=== PATIENT | male | born 1950 | race Caucasian/White ===

== ENCOUNTER 2022-03-26 06:57 | Inpatient (IN) ==
[2022-03-26] MEDS ORDERED: NITROGLYCERIN/D5W 100MCG/ML 20ML SYR ONE (08:05)
[2022-03-26] MEDS ORDERED: fentaNYL citrate 100 MCG/2 ML VIAL ONE ×2 (08:05→09:26)
[2022-03-26] MEDS ORDERED: MIDAZOLAM HCL 1 MG/ML 2ML VIAL ONE ×3 (08:05→09:58)
[2022-03-26] MEDS ORDERED: niCARdipine HCL INJ 2.5 MG/ML 10 ML AMP ONE (08:05)
[2022-03-26] MEDS ORDERED: HEPARIN (PORCINE) 1000 UNIT/ML 10 ML (CATH LAB USE ONLY) ONE ×2 (08:05→10:00)
[2022-03-26] MEDS ORDERED: LIDOCAINE 1% LOCAL 20 ML VIAL ONE (08:20)
--- NOTE | 2022-03-26 08:42 | Pre Anesthesia Assessment ---
Date of Service March 26, 2022 Pre Sedation Assessment Vital Signs Temp Pulse Resp BP Pulse Ox O2 Del Method 03/26/22 07:26 98.2 F 57 L 16 116/70 97 Room Air Cardiovascular RRR, no murmur, no edema Respiratory normal respiratory effort, lungs clear to auscultation Pre-Sedation Airway Assessment Smoking Status: Never smoker Hx Sleep Apnea: Yes Hx Difficult Intubation: No Short, Thick Neck: No Thyromental Distance: > or= 3.5 Finger Breadths Oral Cavity: + WNL Mallampati Class: IV ASA: ASA3 NPO Status Date of Last Intake of Fluids: 03/26/22 Time of Last Intake of Fluids: 04:30 Last Oral Intake of Fluids Comment: sip with meds Date of Last Intake of Solid Food: 03/25/22 Time of Last Intake of Solid Foods: 18:00 Procedure Planning Contraindications for Sedation: none Current Medications Reviewed: Yes Notes The planned sedation has been discussed with the patient. Informed Consent was obtained. I have identified the patient, determined the appropriateness of sedation and have assessed the patient immediately prior to the procedure. All medicine(s) and interventions are by my order.
--- NOTE | 2022-03-26 08:42 | History & Physical Bridge Note ---
Date of Service March 26, 2022 History & Physical Bridge Note I have examined the patient, reviewed the History & Physical and in the interval since the performance of the History & Physical I have noted the following changes of clinical significance: no changes noted
[2022-03-26] MEDS ORDERED: ATROPINE SULFATE 0.1 MG/ML 10ML SYR IV ONE (09:31)
[2022-03-26] MEDS ORDERED: NOREPINEPHRINE BITARTRATE 1 MG/ML 4 ML VIAL IV ONE (09:40)
--- NOTE | 2022-03-26 10:44 | Post Anesthesia Assessment ---
Date of Service March 26, 2022 Post Sedation Assessment Vital Signs Temp Pulse Resp BP Pulse Ox O2 Del Method 03/26/22 10:20 58 L 18 117/66 98 Room Air 03/26/22 07:26 98.2 F 57 L 16 116/70 97 Room Air Recovery Score Activity: Moves 4 extremities Respiration: Deep Breath/Cough Circulation: +/-20% PreAnes Value Consciousness: Fully Awake Oxygen Saturation: > 92% On Room Air Post Anesthesia Score: 10 Discharge Sedation Level of Care: Fast Track Phase II Post Sedation Plan On clinical assessment, the patient appears to have tolerated the sedation without complications. Patient is recovering as anticipated. Patient will continue to be monitored by nursing and may be discharged when sedation discharge criteria are met per below protocol. Upon Completions of procedure up to 15 minutes continue every 5 minute vital signs and the P.A.R. score; then discharge to a Phase I or Fast Track to Phase II per the following guidelines: * Discharge Patient to appropriate Phase II area if PAR is 8 or greater or return to pre- procedure baseline. The post - procedure orders will be as directed. * If PAR score is less than 8 or not return to pre-procedure baseline then patient will follow Phase I monitoring till PAR is reached for Phase II. The Phase I may be done in procedure room or may call to secure a Phase I area. * If naloxone or flumazenil are used for reversal, hold in Phase I for continued monitoring from when last reversal dose was given for a minimum of 60 minutes or longer pending the nurse and/or physician discretion of patient condition before discharge to Phase II. Please call the Sedation Physician to re-evaluate and complete post-note for discharge to Phase II area. Do NOT discharge from procedure sedation or Phase 1 until post- sedation evaluat ion note is complete by procedure /sedation MD Sedation Discharge Instructions to be given to the patient at discharge to home.
[2022-03-26] MEDS ORDERED: ONDANSETRON INJ 2 MG/ML 2 ML VIAL IV PRN (10:46)
[2022-03-26] MEDS ORDERED: NITROGLYCERIN SL 0.4 MG/TAB TAB SL PRN (10:52)
[2022-03-26] MEDS ORDERED: SODIUM CHLORIDE 0.9% 1000ML 1,000 ML IV SCH (11:00)
[2022-03-26] MEDS ORDERED: Heparin IV Adult Wt-Based Standard *NO* Bolus Protocol IV SCH (11:02)
[2022-03-26] MEDS ORDERED: HEPARIN SODIUM/DEXTROSE 25,000 UNITS/500 ML BAG IV SCH (11:15)
--- NOTE | 2022-03-26 17:16 | Electrocardiogram Report ---
Test Reason : Blood Pressure : / mmHG Vent. Rate : 059 BPM Atrial Rate : 059 BPM P-R Int : 254 ms QRS Dur : 106 ms QT Int : 418 ms P-R-T Axes : 060 054 -24 degrees QTc Int : 413 ms Sinus bradycardia with 1st degree A-V block Possible Inferior infarct , age undetermined Cannot rule out Anterior infarct , age undetermined Abnormal ECG No previous ECGs available Confirmed by Vargas Cruz ([id number]) on 03/26/2022 5:16:22 PM Referred By: Monae Esparza Confirmed By:Vargas Cruz
--- NOTE | 2022-03-26 19:06 | Cardiac Catheterization ---
[facility] Data: Plate Gauger Cardiac Status Clinical evaluation leading to the procedure CAD Presenation: Positive Stress Test Anginal Classification: CCS III Diagnostic Physicians Name: Navneet Godfrey MD Closure Device Recommendations: CABG Cardiac Cath Procedure Full Procedure Date March 26, 2022 Pre-Procedure Diagnosis Pre-Procedure Diagnosis: Angina and Positive Stress Test AUC Score AUC Score: 8 Post-Procedure Diagnosis Post-Procedure Diagnosis: Severe CAD and Unsuccessful PCI Procedure(s) Performed Procedure(s) Performed: Coronary Angiography, Left Heart Cath and Ultrasound Guided Vascular Access Laminating Machine Tender Navneet Godfrey MD Asphalt Surface Heater Operator(s) Rosie Waller Estimated Blood Loss Estimated Blood Loss: 15 Medication(s) Medication(s): Aspirin, Fentanyl, Heparin, Lidocaine 1%, Nicardipine, Nitroglycerin and Versed Summary of Findings Indication: Abnormal stress test, accelerating angina Access: 6 Fr right radial artery, 6 Fr right common femoral artery under ultrasound guidance Catheters: [place], EBU 3.5 guide Findings: LM -short, normal caliber, no significant disease LAD -medium caliber vessel, calcified diffuse moderate proximal to mid disease, mid 98% stenosis with MAYRA I-II flow in remainder of vessel. LAD provides left to right collaterals to PDA Circumflex -medium caliber vessel, luminal irregularities RCA -dominant, 98% earlymid stenosis, 95% distal stenosis at takeoff of small PDA. PDA fills via [id number] collaterals. 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 No apparent complications. Unchanged MAYRA I-II flow in distal LAD Arterial Closure: TR band Summary: 1. Severe multi vessel coronary artery disease -Calcified, diffuse 50-60% proximal disease before 98% mid LAD stenosis with MAYRA I-II flow distally. Subtotal earlymid RCA occlusion, 95+% distal RCA stenosis at bifurcation with PDA. PDA fills partially via [id number] collaterals from LAD 2. Normal intracardiac filling pressure 3. Unsuccessful attempted PCI of LAD due to inability to pass balloon across diffuse, calcified mid LAD disease Recommendations: Recommend further evaluation at tertiary center for CABG versus complex PCI. With MAYRA I-II flow in LAD recommend inpatient evaluation. We will transfer to [facility] on heparin infusion Hemodynamics Rest Ao:: 114/64/83 Final Ao: 127/57/79 LV: 122/16 Recommendations Recommendations: CABG Specimens Specimens: None Radiation Exposure (mGy) 4398 Contrast (mls) 125 Anesthesia moderate [id number] Procedural Complication(s) None Disposition PCU I attest to the content of the Intraoperative Record and any orders documented therein. Any exceptions are noted below. [employer] Card Cath Procedure Codes Cardiac Catheterization Procedure 1: Cardiovascular Cath Procedures: 96151 Coronaries and LHC (+/-LV) Therapeutic Services & Ancillary Procedure 1: Cardiovascular Tx and Anc Procedures: 62683 Ultrasonic Guidance Vascular Access Moderate Sedation Procedure 1: Sedation/Anesthesia: 23784 Mod Sedation by the same physician;Init15 Min Child Age 5 & Up Procedure 2: Sedation/Anesthesia: 17621 Mod Sedation by the same physician; Ea [id number] Minutes Angioplasty Procedure 1: Cardiovascular Angioplasty Procedures: 09939 PTCA; Single mafor coronary artery or branch RC LC LD PG Care Time/CCT Total # of Minutes Spent Total Time Spent with Patient: Total time spent is greater than 50% in coordination of care (as documented) at patient's floor/unit and/or counseling patient:
--- NOTE | 2022-03-26 19:24 | Discharge Summary ---
Date of Service March 26, 2022 Admission HPI Per Admitting Provider Mr. Yoon is a very pleasant 71-year-old man with a history of hypertension, dyslipidemia, obstructive sleep apnea with progressive dyspnea on exertion and recent high risk abnormal stress test. Presented today for cardiac catheterization. Admitted after found to have high risk multivessel CAD. Discharge Data Procedures Performed Operation Date: 03/26/22 08:00 Actual Procedures p Cineradiography w/Routine Exam - Stanley Godfrey MD p Cath, Left with Cors and Vent - MD heidi Sellers Ultrasound Vascular Access - MD heidi Sellers POBA SGL Vessel - MD heidi Sellers Placement Art Occlusive Device - Stanley Godfrey MD Hospital Course (1) Multi-vessel coronary artery stenosis: Plan Cardiac cath findings: 1. Severe multi vessel coronary artery disease -Calcified, diffuse 50-60% proximal disease before 98% mid LAD stenosis with MAYRA I-II flow distally. Subtotal earlymid RCA occlusion, 95+% distal RCA stenosis at bifurcation with PDA. PDA fills partially via [id number] collaterals from LAD 2. Normal intracardiac filling pressure 3. Unsuccessful attempted PCI of LAD due to inability to pass balloon across diffuse, calcified mid LAD disease Due to high risk multivessel CAD with sluggish distal LAD flow patient was admitted for observation prior to transfer to [facility] for evaluation of revascularization options, CABG versus complex PCI. During admission patient was chest pain-free, hemodynamically and electrically stable. No apparent access site complications. Discharged on heparin infusion. Coding Level of Care Code HOSP INP/OBS DISCH 30 MIN/LESS Diagnoses Multi-vessel coronary artery stenosis I25.10
[2022-03-26] MEDS ORDERED: amLODIPine BESYLATE 5 MG TAB PO SCH (21:00)
[2022-03-26] MEDS ORDERED: METOPROLOL SUCC 25MG EXT REL TAB PO SCH (21:00)
[2022-03-26] MEDS ORDERED: DOXAZOSIN MESYLATE 1 MG TAB PO SCH (21:00)
[2022-03-26] MEDS ORDERED: ROSUVASTATIN CALCIUM 20 MG TAB PO SCH (21:00)
[2022-03-26] MEDS ORDERED: LOSARTAN POTASSIUM 50 MG TAB PO SCH (21:00)
[2022-03-26 23:25] LABS: Partial Thromboplastin Ratio 1.8
[2022-03-26 23:33] LABS: Partial Thromboplastin Time 49.5 Seconds (21.0-31.0)
[2022-03-27 06:51] LABS: Basophils # (auto) 0.04 K/uL (0-0.2); Basophils % (auto) 0.5 %; Echinocytes 1+; Eosinophils # (auto) 0.26 K/uL (0-0.50); Eosinophils % (auto) 3.4 %; Hematocrit (blood only) 41.2 % (40.1-51.0); Hemoglobin 14.1 g/dl (14.0-18.0); Immature Granulocytes # (auto) 0.03 K/uL (0.00-0.02); Immature Granulocytes % (auto) 0.4 %; Lymphocytes # (auto) 2.27 K/uL (1.2-3.4); Lymphocytes % (auto) 29.5 %; Mean Corpuscular Hemoglobin 29.4 pg (25.0-34.0); Mean Corpuscular Hgb Conc 34.2 g/dL (32.0-36.0); Mean Corpuscular Volume 85.8 fL (80.0-100.0); Mean Platelet Volume 10.9 fL (9.4-12.4); Monocytes # (auto) 0.51 K/uL (0.24-0.82); Monocytes % (auto) 6.6 %; Neutrophils # (auto) 4.59 K/uL (1.4-6.5); Neutrophils % (auto) 59.6 %; Platelet Count 134 K/uL (130-400); Polychromasia 1+; RDW Coefficient of Variation 13.4 % (11.5-14.5)
[2022-03-27 07:04] LABS: Calcium 8.8 mg/dl (8.5-10.1); Potassium 3.4 mmol/L (3.5-5.1)
[2022-03-27 07:10] LABS: BUN Creatinine Ratio 31.6 (10-20); Est GFR (African American) 103.2 ml/min; Est GFR (Non-African American) 89.1 ml/min
[2022-03-27] MEDS ORDERED: LEVOTHYROXINE SODIUM 75 MCG TABLET PO SCH (09:00)
[2022-03-27] MEDS ORDERED: TRIAMTERENE/HCTZ 37.5/25MG TAB PO SCH (09:00)
[2022-03-27] MEDS ORDERED: ASPIRIN 81 MG ECTAB PO SCH (09:00)
== END 2022-03-27 07:38 | disposition short-term general hospital (02) | DRG 287 ==
LOC: EP 06:57 → 2E 10:51
DX: E66.9 Obesity, unspecified; Z68.37 Body mass index [BMI] 37.0-37.9, adult; I25.118 Atherosclerotic heart disease of native coronary artery with other forms of angina pectoris; E03.9 Hypothyroidism, unspecified; E78.5 Hyperlipidemia, unspecified; I10 Essential (primary) hypertension; G47.33 Obstructive sleep apnea (adult) (pediatric)